=== PATIENT | female | born 1950 | race Caucasian/White ===

== ENCOUNTER → 2016-10-12 | Outpatient (CLI) | payer MEDICARE, OTHER ==
[~2016-10-12] MED LIST: AGM875T PO; ALBU0.8322 IH; ALBU17AE23 IH; ALBU8.5H2 IH; ALPR.5T PO; ALPR0.5T3 PO; AMLO10TA PO; AMLO10TA4 PO; ASP81TEC PO; ATOR10TA PO; ATOR20TA66 PO; BIFI1CAP PO; BUDE6HFA; BUDE6HFA IH; BUDE6HFA INH; CATHETER FLUSH 10 ML SYR IV PRN; CEPH500C; CITA10SO PO; CLAR-19 PO; CLPD75T PO; CTLP20T PO; DPAS20025 PO; DULO60CA6 PO; FLUT1DIS26 IH; HYDR-3714 PO; HYDR-757 PO; HYDR1CAP2 PO; HYDR1TAB PO; IOHEXOL 350 MG/ML 100 ML (OMNIPAQUE 350) VIAL IV ONE; LISI10TA2 PO; LISI5TAB PO; LSNP10T; MELO-195 PO; METO25TA2 PO; MORP15TA PO; MORP30TA28 PO; NCT21TD TD; NS 100 ML (IVPB) BAG IV ONE; OMEG1CAP51 PO; OMEP20CA12 PO; OMG1KC PO; Oseltamivir Phosphate PO; Oxygen; PANT40SU PO; PNT40TEC PO; PRD20T PO; Prednisone PO; RT-ALBUINH IH; TIOT18CA IH; TIOT18CA2 IH; VNL75T; [UNRECOGNIZED DRUG - CODE] TD
[2016-10-12 13:08] LABS: BLOOD UREA NITROGEN 11 MG/DL (7-18); BUN/CREATININE RATIO 12; GFR ESTIMATED > 60
--- NOTE | 2016-10-12 15:20 | Diagnostic Imaging Report ---
EXAMINATION: CT angiogram of the neck. INDICATION: Carotid artery stenosis. 80 mL of Omnipaque 350 is administered intravenously. Thin section images through the neck are performed after administration of contrast with MIP coronal reconstructions performed. FINDINGS: In the upper lungs, there is a 9 mm spiculated nodule in the lateral aspect of the left upper lobe near the lung apex. When compared with CT chest of 01/08/2016, this is an adverse development compared to the previous study, and is at the location of a 5 mm density on the prior exam. Area of prominent scarring in the right lung apex seen. Advanced emphysema changes are noted. The visualized portions of the mediastinum and josiah demonstrate no lymphadenopathy. The aortic arch is ectatic. There is mild calcified plaque at the origin of the left common carotid artery with no significant stenosis. There is a calcified plaque at the left common carotid artery bifurcation extending to the proximal left ICA with estimated underlying stenosis of about 50-60%. Similarly, in the right side there is plaque at the distal common carotid artery extending into the ICA with estimated stenosis of about 50-60%. The left vertebral artery demonstrates a prominent ostial plaque with estimated 40-60% stenosis. The left vertebral artery is dominant. The nondominant right vertebral artery demonstrates no significant stenosis. No soft tissue mass or significant lymphadenopathy is seen in the neck. The osseous structures demonstrate degenerative changes in the cervical spine. IMPRESSION: 1. There is a lateral left upper lobe 9 mm spiculated pulmonary nodule suspicious for lung cancer. 2. Emphysema. 3. Atherosclerotic plaque at the carotid bifurcation with extension into the proximal ICA. There is estimated underlying stenosis in the range of 50-60% bilaterally. 4. The left vertebral artery is dominant and demonstrates a calcified plaque at its origin with estimated underlying stenosis of about 40-60%. Dr. Gallo was informed of the findings by Dr. Martell at time of dictation. Dictated by: Dictated on workstation # [id number]
== END ==
LOC: RAD 12:36
PROVIDERS: ATTEND Internal Medicine Cardiovascular Disease
DX: I65.23 Occlusion and stenosis of bilateral carotid arteries (principal); I67.2 Cerebral atherosclerosis; R91.1 Solitary pulmonary nodule; J43.9 Emphysema, unspecified
CPT/HCPCS: 36415; 70498; 82565; 84520

== ENCOUNTER → 2016-10-14 | Outpatient (CLI) | payer MEDICARE, OTHER ==
[~2016-10-14] MED LIST changes: +BARIUM SUSPENSION 2.1% (VANILLA SILQ) 450 ML PO ONE
--- NOTE | 2016-10-14 12:55 | Diagnostic Imaging Report ---
PROCEDURE: CT chest with contrast, CT abdomen and pelvis with and without contrast. INDICATION: Aortic aneurysm, Hodgkin's lymphoma. TECHNIQUE: CT imaging of the abdomen before as well as the chest, abdomen and pelvis following the administration of intravenous contrast. CORRELATION STUDY: CT chest 01/08/2016 and 08/28/2014. CT abdomen and pelvis 04/25/2014. FINDINGS: CT CHEST: No pathologically enlarged mediastinal and/or hilar lymph nodes. Axilla is unremarkable as well. Mild ectasia of ascending aorta, maximum dimension at 3.9 cm. Heart size unremarkable. There is presence of coronary artery calcification. EG junction unremarkable. Emphysematous changes about the lung infante are noted. No infiltrate. Likely irregular pleural-parenchymal scarring at the right lung apex generally stable. There, however, is an irregular, somewhat spiculated density about the anterolateral aspect of the left upper lobe, changed from prior study. This measures 8 x 6 x 8 mm. This appears predominantly solid and neoplasm is suspect. Multilevel degenerative changes of the thoracic spine. CT ABDOMEN and PELVIS: There are several low-density areas noted within the liver most compatible with cysts appearing relatively stable. Low-density mass superior portion of the spleen subcapsular region laterally approximately 15 mm in size, perhaps very slightly increased but remains most compatible with cyst as well. Gallbladder slightly contracted but otherwise unremarkable. Biliary tree unremarkable. Pancreas and adrenal glands relatively stable. Multiple rounded low-density masses in the left kidney most compatible with cyst appearing unchanged. Kidneys otherwise unremarkable. No hydronephrosis. There is ectasia of the proximal abdominal aorta maximum dimension of 2.5 cm. Moderate wall calcification. There is also calcification at the origin of the great vessels particularly the renal arteries. Again noted a few mildly prominent but nonpathologically enlarged lower posterior mediastinal as well as central retroperitoneal lymph nodes. No definitive new or enlarging or pathologically enlarged lymphadenopathy. The gastrointestinal tract demonstrates asymmetric wall thickening of the descending and sigmoid colon and to a lesser degree ascending colon. This may very well be owing to collapsed state. Small bowel unremarkable. No abdominal ascites or free air. Abdominal wall small retroumbilical hernia, uncomplicated in appearance. The urinary bladder unremarkable. Uterus is absent. Osseous structures are unremarkable. There is some degree of bony demineralization present. IMPRESSION: CT CHEST: 1. Spiculated left upper lobe pulmonary nodule, worrisome for potential lung neoplasm. Findings superimposed on emphysematous lung disease. CT ABDOMEN and PELVIS: 1. Findings most compatible with hepatic, splenic and renal cysts, some slightly increased in size but otherwise unremarkable. 2. No evidence for pathologically enlarged abdominopelvic lymphadenopathy. Stable scattered shotty lymph nodes. 3. Suggestion of wall thickening about portions of the colon likely largely attributed to collapsed state. Correlation with any symptoms for potential nonspecific colitis would be recommended. Dictated by: Dictated on workstation # [id number]
== END ==
LOC: RAD 07:44
PROVIDERS: ATTEND Internal Medicine Hematology & Oncology
DX: I71.2 Thoracic aortic aneurysm, without rupture (principal); C81.23 Mixed cellularity Hodgkin lymphoma, intra-abdominal lymph nodes
CPT/HCPCS: 71260; 74178

== ENCOUNTER → 2016-10-26 | Outpatient (CLI) | payer MEDICARE, OTHER ==
[~2016-10-26] MED LIST changes: -BARIUM SUSPENSION 2.1% (VANILLA SILQ) 450 ML PO ONE; -CATHETER FLUSH 10 ML SYR IV PRN; -IOHEXOL 350 MG/ML 100 ML (OMNIPAQUE 350) VIAL IV ONE; -NS 100 ML (IVPB) BAG IV ONE
--- NOTE | 2016-10-26 13:52 | Diagnostic Imaging Report ---
EXAMINATION: PET-CT TECHNIQUE: Serum glucose level at the time of the study is: 99 mg/dL. 12.2 mCi of FDG was administered intravenously followed by obtaining PET images with corresponding noncontrast CT scan images. The CT scan was performed for anatomic correlation and attenuation correction and was not performed according to the diagnostic protocol of the areas covered. The scan was performed from the head to mid thighs. INDICATION: Lung mass. History of Hodgkin's lymphoma. FINDINGS: There is symmetric increased FDG uptake in the brain, physiologic. There is slightly increased FDG uptake in the nasopharynx asymmetric to the left with no underlying mass identified as well as asymmetric increased activity within the sternocleidomastoid bone on the right side and some paraspinal muscles in the neck is compatible with physiologic activity. There is a pulmonary nodule seen on recent CT scan of the neck and of the chest that is approximately 9 mm in size and is associated with minimal increased FDG uptake. This is associated with spiculated borders and is suspicious despite the lack of significant FDG uptake which is perhaps due to its small size. No suspicious hypermetabolic activity is seen in the chest otherwise. IN THE ABDOMEN AND PELVIS: There is physiologic urinary tract activity seen. There is expected urinary excretion of the tracer also noted. No suspicious hypermetabolic mass is identified. IMPRESSION: 9 mm nodule in the lateral aspect of the left upper lobe with associated spiculations is concerning for malignancy despite lack of significant increased FDG uptake which could be due to the small size of this nodule. Consider surgical resection. Dictated by: Dictated on workstation # [id number]
== END ==
LOC: RAD 10:21
PROVIDERS: ATTEND Internal Medicine Hematology & Oncology
DX: R91.8 Other nonspecific abnormal finding of lung field (principal); C81.23 Mixed cellularity Hodgkin lymphoma, intra-abdominal lymph nodes

== ENCOUNTER 2016-11-01 14:11 | Outpatient (RCR) | payer MEDICARE, OTHER ==
[2016-10-12 14:32] LABS: BASOPHILS % (AUTO) 0 % (0-10); EOSINOPHILS # (AUTO) 0.2 10^3/uL (0.0-0.3); EOSINOPHILS % (AUTO) 3 % (0-10); LYMPHOCYTES # (AUTO) 0.8 X 10^3 (1.0-4.0); LYMPHOCYTES % (AUTO) 15 % (12-44); MEAN CORPUSCULAR HEMOGLOBIN 32 PG (25-34); MEAN CORPUSCULAR HGB CONC 34 G/DL (32-36); MEAN CORPUSCULAR VOLUME 95 FL (80-99); MEAN PLATELET VOLUME 9.8 FL (7.4-10.4); MONOCYTES # (AUTO) 0.5 X 10^3 (0.0-1.0); MONOCYTES % (AUTO) 9 % (0-12); NEUTROPHILS # (AUTO) 3.6 X 10^3 (1.8-7.8); NEUTROPHILS % (AUTO) 72 % (42-75); PLATELET COUNT 194 10^3/uL (130-400); RED BLOOD COUNT 4.07 10^6/uL (4.35-5.85); RED CELL DISTRIBUTION WIDTH 12.8 % (10.0-14.5)
[2016-10-12 14:59] LABS: ALANINE AMINOTRANSFERASE 12 U/L (0-55); ALBUMIN 3.9 G/DL (3.2-4.5); ANION GAP 6 MMOL/L (5-14); ASPARTATE AMINO TRANSFERASE 17 U/L (5-34); BILIRUBIN,TOTAL 0.4 MG/DL (0.1-1.0); BLOOD UREA NITROGEN 11 MG/DL (7-18); BUN/CREATININE RATIO 12; CALCIUM 8.6 MG/DL (8.5-10.1); CARBON DIOXIDE 31 MMOL/L (21-32); CHLORIDE 96 MMOL/L (98-107); CREATININE SERUM 0.89 MG/DL (0.60-1.30); GFR ESTIMATED > 60; GLUCOSE 96 MG/DL (70-105); LACTATE DEHYDROGENASE 169 U/L (125-220); POTASSIUM 4.4 MMOL/L (3.6-5.0); SODIUM 133 MMOL/L (135-145); TOTAL PROTEIN 5.8 G/DL (6.4-8.2)
[2016-10-12 16:10] LABS: ERYTHROCYTE SEDIMENTATION RATE 3 MM/HR (0-30)
== END 2017-01-10 | disposition home or self-care (01) ==
LOC: ONC 14:11
PROVIDERS: ATTEND Internal Medicine Hematology & Oncology
DX: C81.93 Hodgkin lymphoma, unspecified, intra-abdominal lymph nodes (principal); D64.9 Anemia, unspecified; J44.9 Chronic obstructive pulmonary disease, unspecified; F17.200 Nicotine dependence, unspecified, uncomplicated; Z79.899 Other long term (current) drug therapy
CPT/HCPCS: 36415; 80053; 82728; 83540; 83615; 85025; 85652; 99213

== ENCOUNTER → 2016-12-08 | Outpatient (CLI) | payer MEDICARE, OTHER | LOC: RT 14:58 | PROVIDERS: ATTEND Nurse Practitioner | DX: R91.1 Solitary pulmonary nodule (principal) | CPT/HCPCS: 94060; 94726; 94729 ==

== ENCOUNTER → 2017-01-13 | Outpatient (CLI) | payer MEDICARE, OTHER ==
--- NOTE | 2017-01-18 11:44 | Diagnostic Imaging Report ---
Bilateral screening mammogram The current study was also evaluated with a Computer Aided Detection (CAD) system. Indication: Screening. No current complaints stated on the questionnaire. COMPARISON: 01/03/13 FINDINGS: The breasts are composed of scattered fibroglandular densities. There is an intramammary lymph node in the outer aspect of the right breast that appears minimally more prominent compared to the prior exam. Scattered benign-appearing calcifications are seen. Allowing for technique and positional differences, no suspicious change is seen. IMPRESSION: No significant change. ACR BI-RADS Category 2: Benign findings. Result letter will be mailed to the patient. Note: At least 10% of breast cancer is not imaged by mammography. Dictated by: Dictated on workstation # [id number]
== END ==
LOC: RAD 11:03
PROVIDERS: ATTEND Internal Medicine
DX: Z12.31 Encounter for screening mammogram for malignant neoplasm of breast (principal)
CPT/HCPCS: 77067

== ENCOUNTER → 2017-01-13 | Outpatient (CLI) | payer MEDICARE, OTHER ==
--- NOTE | 2017-01-13 13:28 | Diagnostic Imaging Report ---
PROCEDURE: CT chest without contrast. TECHNIQUE: Multiple contiguous axial images were obtained through the chest without the use of intravenous contrast. INDICATION: Follow-up lung nodule. COMPARISON: 10/14/2016. FINDINGS: There is interval enlargement in the left upper lobe spiculated nodule now measuring 1 x 0.7 x 0.8 cm compared to 0.8 x 0.6 x 0.8 cm previously with persistent spiculated margins. This is concerning for an early lung cancer. The area of consolidation in the left lung apex is favored to be related to pleural thickening. It is also stable from 2014 exam. There is no other mass or suspicious nodule seen in the lungs. There is upper lobe predominant emphysema. No pleural or pericardial effusion. The heart size is normal. The thoracic aorta demonstrates mild dilatation in the ascending segment to 4 cm. There is no mediastinal mass. The josiah are not opacified with no discrete hilar mass seen. The axilla demonstrates no lymphadenopathy. The osseous structures demonstrate mild degenerative changes of the thoracic spine. The left hepatic lobe demonstrates a hypodense lesion measuring 2 cm similar to prior exams, likely related to liver cyst. Cystic lesion in the upper pole of the right kidney anteriorly is also seen measuring 2.7 cm. IMPRESSION: 1. Interval mild enlargement in a lateral left upper lobe spiculated nodule concerning for early malignancy. Consider surgical resection. 2. Upper lobe predominant emphysema. Findings were discussed with Dr. Dye at time of dictation. Dictated by: Dictated on workstation # [id number]
== END ==
LOC: RAD 11:07
PROVIDERS: ATTEND Internal Medicine Critical Care Medicine
DX: R91.8 Other nonspecific abnormal finding of lung field (principal); E66.9 Obesity, unspecified; Z72.0 Tobacco use; R09.02 Hypoxemia; C81.23 Mixed cellularity Hodgkin lymphoma, intra-abdominal lymph nodes
CPT/HCPCS: 71250

== ENCOUNTER 2018-08-23 15:27 | Outpatient (CLI) | payer MEDICARE ==
[~2018-08-23] VITALS: Ht 162.6 cm; Wt 62.7 kg
[~2018-08-23 15:27] MED LIST changes: +ALBU2.5V4 INH; +ALPR0.5T7 PO; +AMLO5TAB7 PO; +ASPI-586 PO; +BUDE10.2 IH; +CITA40TA11 PO; +CLOP75TA69 PO; +HYDR-3812 PO; +L.AC1CAP6 PO; +METO-333 PO; +OMEP40CA36 PO
== END 2018-08-23 16:00 | disposition home or self-care (01) ==
LOC: PREOP 15:27
PROVIDERS: ATTEND Surgery
DX: Z01.818 Encounter for other preprocedural examination (principal)